=== PATIENT | female | born 1985 | race Two or more races ===

== ENCOUNTER 2024-01-31 15:40 | Outpatient (CLI) | payer OTHER, SELFPAY | END 2024-01-31 15:41 | disposition home or self-care (01) | PROVIDERS: PCP Internal Medicine; Visit Provider Internal Medicine | DX: M32.9 Systemic lupus erythematosus, unspecified (principal); Z13.29 Encounter for screening for other suspected endocrine disorder | CPT/HCPCS: 80053; 84443 ==

== ENCOUNTER 2024-03-27 15:51 | Outpatient (CLI) | payer OTHER, SELFPAY ==
--- NOTE | 2024-03-27 16:00 | CRLHL7_ITS ---
For Patients: As a result of the Century Cures Act, medical imaging exams and procedure reports are released immediately into your electronic medical record. You may view this report before your referring provider. If you have questions, please contact your health care provider. CLINICAL HISTORY: pelvic and perineal pain TECHNIQUE: 2D soliman scale ultrasound. In addition color Doppler and spectral Doppler analysis was performed of the pelvis using a transabdominal and transvaginal approach. FINDINGS: Left uterine intramural fibroid measures 11 x 10 x 11 mm. The uterus measures 9.2 x 4.0 x 4.8 cm. The endometrial lining measures 9 mm in thickness. The right ovary measures 2.7 x 1.8 x 1.3 cm in size and the left ovary measures 3.6 x 2.9 x 1.3 cm. The ovaries demonstrate normal arterial and venous blood flow on color Doppler and spectral Doppler analysis. There are no suspicious fluid collections within the cul-de-sac. IMPRESSION: No ovarian torsion, adnexal mass or excess pelvic fluid. Mildly heterogeneous area within the right ovary may represent an incidental dermoid or hemorrhagic cyst. This measures 2.2 cm. Dictated by Rosendo Nunn MD @ 03/28/2024 10:38:17 AM (Electronically Signed)
== END 2024-03-27 15:52 | disposition home or self-care (01) ==
LOC: US 15:55
PROVIDERS: PCP Internal Medicine; Visit Provider Obstetrics & Gynecology
DX: R10.2 Pelvic and perineal pain (principal)
CPT/HCPCS: 76830; 76856; 93976; T1013

== ENCOUNTER 2024-06-10 08:15 | Outpatient (CLI) | payer OTHER, SELFPAY | END 2024-06-10 08:16 | disposition home or self-care (01) | LOC: OP CLINIC 08:24 | PROVIDERS: PCP Internal Medicine; Visit Provider Internal Medicine | DX: Z53.8 Procedure and treatment not carried out for other reasons (principal) ==

== ENCOUNTER 2025-03-14 06:59 | Outpatient (CLI) | payer OTHER, SELFPAY ==
--- NOTE | 2025-03-14 07:15 | CRLHL7_ITS ---
For Patients: As a result of the Century Cures Act, medical imaging exams and procedure reports are released immediately into your electronic medical record. You may view this report before your referring provider. If you have questions, please contact your health care provider. CLINICAL HISTORY: PERINEAL AND PELVIC PAIN COMPARISON: None. TECHNIQUE: 2D soliman-scale ultrasound. In addition, color Doppler and spectral Doppler analysis was performed of the pelvis using a transabdominal and transvaginal approach. Transvaginal imaging performed to better visualize the endometrial stripe and ovaries. FINDINGS: The uterus measures 9.3 x 4.6 x 5.1 cm. Left lower uterine intramural fibroid measures 1.3 x 1.2 x 1.3 cm. The endometrial lining measures 13 millimeters. Complex fluid is present within the fundal endometrium. The right ovary measures 3.2 x 2.1 x 1.9 cm in size and the right ovary measures 5.7 x 2.0 x 3.0 cm. The ovaries demonstrate normal arterial and venous blood flow on color Doppler and spectral Doppler analysis. Simple left adnexal cyst measures 3.0 x 2.2 x 2.8 cm. IMPRESSION: Simple left adnexal cyst/fluid collection measures 3 cm. Ovaries are unremarkable. No torsion. Thickened endometrium measuring 13 millimeters with probable blood products in the fundal endometrium. Small endometrial polyps can not be excluded. Dictated by Rosendo Nunn MD @ 03/14/2025 11:15:32 AM (Electronically Signed)
== END 2025-03-14 07:00 | disposition home or self-care (01) ==
LOC: US 07:00
PROVIDERS: PCP Internal Medicine; Visit Provider Obstetrics & Gynecology
DX: R10.2 Pelvic and perineal pain (principal); D25.9 Leiomyoma of uterus, unspecified; R93.89 Abnormal findings on diagnostic imaging of other specified body structures
CPT/HCPCS: 76830; 76856; 93976; T1013

== ENCOUNTER 2025-04-17 15:56 | Outpatient (CLI) | payer OTHER, SELFPAY | END 2025-04-17 15:57 | disposition home or self-care (01) | PROVIDERS: PCP Internal Medicine; Visit Provider Internal Medicine | DX: M32.9 Systemic lupus erythematosus, unspecified (principal); Z01.818 Encounter for other preprocedural examination | CPT/HCPCS: 80053; 86038; 86039; 86200; 86431 ==

== ENCOUNTER 2025-04-23 08:56 | Day surgery (SDC) | payer OTHER, SELFPAY ==
[2025-04-23] VITALS (13 sets, daily range): BP systolic 104–117; BP diastolic 59–81; PULSE 75–104; RESP 10–20; TEMP 36.2–37.1; O2SAT 98–100; BMI 28.4
[2025-04-23] MEDS: SODIUM CHLORIDE 0.9 % (FLUSH) 10 ML SYRINGE IVF (09:18)
[2025-04-23] MEDS: LACTATED RINGERS 1000 ML 1,000 ML 100 ML IV ×2 (09:18→13:05)
[2025-04-23 09:23] LABS: Ur HCG Qualitative* Negative (Negative)
--- NOTE | 2025-04-23 10:46 | P.ANES_ITS ---
Anesthesia Charges Start Date/Time Anesthesia Start Date: 04/23/25 Anesthesia Start Time: 10:59 Stop Date/Time Anesthesia Stop Date: 04/23/25 Anesthesia Stop Time: 13:09 Coding CPT Codes CPT Codes: ANESTH SURG LOWER ABDOMEN - 77281 ([id number]) P2 - PATIENT W/MILD SYST DISEASE, QK - APPLE PICKING SUPERVISOR 2-4 CNCRNT ANES PROC, QX - ROAD REPAIRER SVC W/ MD MED DIRECTION
--- NOTE | 2025-04-23 10:46 | W.ANESCHARGE ---
Anesthesia Charges Start Date/Time Anesthesia Start Date: 04/23/25 Anesthesia Start Time: 10:59 Stop Date/Time Anesthesia Stop Date: 04/23/25 Anesthesia Stop Time: 13:09 Coding CPT Codes CPT Codes: ANESTH SURG LOWER ABDOMEN - 27888 ([id number]) P2 - PATIENT W/MILD SYST DISEASE, QK - WHOLESALE AGRONOMIST 2-4 CNCRNT ANES PROC, QX - RAILWAY ENGINEER SVC W/ MD MED DIRECTION
--- NOTE | 2025-04-23 11:06 | P.GYNPRC_ITS ---
Procedure Note Date of procedure: 04/23/25 [facility] bill your pro fee for this procedure?: Yes Pre-op diagnosis: 1. Pelvic pain, left lower quadrant 2. Abnormal uterine bleeding due to suspected endometrial polyp(s) 3. History sections x2 and laparoscopic cholecystectomy Post-op diagnosis: 1. Pelvic pain, left lower quadrant 2. Abnormal uterine bleeding due to suspected endometrial polyp(s) 3. History sections x2 and laparoscopic cholecystectomy 4. Intra-abdominal and pelvic adhesions Procedure: 1. Hysteroscopy 2. D&C 3. Polypectomy 4. Laparoscopy 5. Lysis of adhesions Anesthesia: GETA Complications: None. Surgeon: Leslie Dalal MD Binding Folder Machine: Caroline Watkins Estimated blood loss (mL): 10 IV fluids (mL): 1,000 Urine Output (mL): 100 Pathology: specimen obtained, sent to pathology (Endometrial polyp and endometrial curettings, sent together as a single specimen) Condition: stable Disposition: same day Findings: Hysteroscopy: One endometrial polyp noted arising from the posterior aspect of the endometrium near the internal cervical os. Thick endometrial lining, consistent with mid cycle. Normal tubal ostia bilaterally. Laparoscopy: Extensive adhesions between the omentum and anterior abdominal wall as well as between the omentum and uterine fundus. Extensive adhesions tethering the sigmoid colon to the left abdominal wall and left pelvic sidewall overlying the left round ligament and left ovary. Left ovary difficult to visualize even after the overlying sigmoid colon was freed from the obscuring adhesions, significantly adherent to the left pelvic sidewall. Right ovary significantly adherent to the right pelvic sidewall near the appendix. Normal- appearing appendix. Left distal fallopian tube nonvisualized. Right distal fallopian tube and fimbria visualized near the adherent right ovary. No evidence of endometriosis, hydrosalpinx, or ovarian cysts. Procedure Description: After obtaining informed consent, the patient was taken to the operating room where general anesthesia was obtained without difficulty. She was prepared and draped in the normal sterile fashion in the dorsal lithotomy position. An open-sided bivalve speculum was introduced into the vagina and the cervix visualized. The anterior lip of the cervix was grasped with a single-tooth tenaculum for traction. The uterus was gently sounded. Sound length was 7 cm. The cervix was gently dilated to a #6 Hegar dilator. A hysteroscope was then advanced under direct visualization through the cervix into the uterine cavity. Sterile normal saline was used as distending medium. The uterine cavity was carefully inspected with the findings noted above. The TruClear morcellator was used to remove the small endometrial polyp without difficulty. The morcellator was also used to remove some of the thick endometrial lining posteriorly. The hysteroscope was then removed. The uterine lining was sharply curetted in additional sample obtained. A Dumbstruck uterine manipulator was them placed and the tenaculum removed. A Medrano catheter was inserted into the bladder and left to gravity drainage. I then changed gown and gloves and my attention was turned to the abdomen. The superior aspect of the umbilical fold was injected with 0.25% Marcaine plain along the line of a previous laparoscopy scar. A 10 mm vertical incision was then made at this site using a scalpel. The subcutaneous tissues were bluntly dissected with a Kortney clamp to the fascia. The fascia was grasped with 2 small Juan clamps and elevated. The fascia was incised sharply with Maza scissors. A direct entry technique was used to place a 5 mm laparoscopic port with CO2 gas set to a 5 mmHg. The trocar was removed leaving the sleeve in place. The CO2 gas flow was turned to high flow to achieve pneumoperitoneum. The 5 mm laparoscope was used then to carefully inspect the abdomen and pelvis with findings noted above. Pictures were taken for documentation purposes. The patient was placed in Trendelenburg positioning. Two additional 5 mm ports were placed the first in the right lower quadrant in the second suprapubically in the midline two fingerbreadths above the symphysis pubis under direct visualization after first anesthetizing the skin and fascia with 0.25% Marcaine plain. The uterus was elevated using the uterine manipulator. Attention was first turned to the omental adhesions. The filmy adhesions between omentum and anterior abdominal wall were lysed with the laparoscopic Metzenbaum scissors and blunt dissection. The LigaSure device was used for adhesed to lysis where small vessels were observed. Great care was taken to stay close to the abdominal wall and away from underlying bowel. The omental adhesions were lysed along the uterine serosa using the LigaSure as well. I continued to use the Metzenbaum scissors to lyse adhesions that were tethering the sigmoid colon to the pelvic sidewall over the left ovary as well as adhesions which were tethering the sigmoid colon to the left round ligament. When the adhesions became more dense and close to the colon, I consulted Dr. Caroline Watkins of general surgery who scrubbed in and performed additional adhesiolysis to free the sigmoid colon from its adhesive attachments. Please see her note for further details. At this point, it was determined that the ovaries were so densely adherent to the pelvic sidewalls that no plane could be established safely to free them, and further adhesiolysis was discontinued. All tissues were carefully inspected and hemostasis observed. All instruments were then removed under direct visualization. Pneumoperitoneum was allowed to escape. The skin at all 3 port sites was closed in a subcuticular fashion with 4-0 Vicryl. Surgical glue was then placed over the incisions. The uterine manipulator and Medrano catheter were removed. The patient tolerated the procedure well. Sponge, lap, and needle counts were correct x2. The patient was taken to the recovery room awake and in stable condition. She received 2 g of IV Ancef preoperatively.
[2025-04-23] MEDS: CEFAZOLIN 1 GM inj 2 GM IVP (11:16)
[2025-04-23] MEDS: BUPIVACAINE 0.25% 30 ML INJECTION (11:29)
--- NOTE | 2025-04-23 13:10 | P.ANES_ITS ---
Anesthesia Charges Start Date/Time Anesthesia Start Date: 04/23/25 Anesthesia Start Time: 10:59 Stop Date/Time Anesthesia Stop Date: 04/23/25 Anesthesia Stop Time: 13:09 Coding CPT Codes CPT Codes: ANESTH SURG LOWER ABDOMEN - 75258 ([id number]) P2 - PATIENT W/MILD SYST DISEASE, QK - CRACK OFF PERSON 2-4 CNCRNT ANES PROC, QX - BIOLOGICAL SCIENCES PROFESSOR SVC W/ MD MED DIRECTION
--- NOTE | 2025-04-23 13:10 | W.ANESCHARGE ---
Anesthesia Charges Start Date/Time Anesthesia Start Date: 04/23/25 Anesthesia Start Time: 10:59 Stop Date/Time Anesthesia Stop Date: 04/23/25 Anesthesia Stop Time: 13:09 Coding CPT Codes CPT Codes: ANESTH SURG LOWER ABDOMEN - 35115 ([id number]) P2 - PATIENT W/MILD SYST DISEASE, QK - DICTAPHONE TYPIST 2-4 CNCRNT ANES PROC, QX - SENIOR RESEARCH PROJECT MANAGER SVC W/ MD MED DIRECTION
--- NOTE | 2025-04-23 13:20 | PM.GSPRC ---
Operative Note Date of procedure: 04/23/25 Pre-op diagnosis: 1. left lower quadrant pain 2. Intra-abdominal adhesions Post-op diagnosis: same Type of Procedure: Laparoscopic lysis of adhesions Indications: The patient is a 39-year-old female was undergoing diagnostic laparoscopy for pelvic pain in the left lower quadrant by Dr. Dalal. Intraoperatively she was found to have intra-abdominal adhesions. Dr. Dalal was able to take down omental adhesions, however the patient had sigmoid colon which was noted to be adherent to the fallopian tube and ovary on the left, precluding visualization of the structures. An intraoperative consultation was requested for assistance. Please see Dr. Dalal' documentation for preoperative decision making. Procedure Description: I arrived to the OR with the patient in lithotomy position, under general anesthesia. Dr. Dalal had placed laparoscopic ports in the lower abdomen and had lysed omental adhesions. I examined the abdomen. The patient had sigmoid colon which was adherent to the left anterolateral pelvic sidewall, specifically what appeared to be the left ovary and fallopian tube. This precluded visualization of the ovary. Using Metzenbaum scissors, I took down these adhesions. I took care to divide only the wispy portions of the adhesions which appeared to be between epiploic fat and the ovary. Once this was taken down, it was not entirely clear that the tissue behind this was the ovary as it was scarred into the peritoneum. There was some whitish tissue slightly more laterally, again covered by sigmoid colon. Again, I carefully took down the adhesions between the peritoneum, with care to err on the side of the peritoneum to avoid injury to the serosa of the colon. There was a plane with the fibers between the 2 tissues. Once this was taken down, again, it was unclear exactly where the ovary was located, as it appeared to be possibly scarred to the peritoneum, however the sigmoid colon was now completely mobilized from this area. It was again examined and free from injury. It should be noted that the adhesions that were taken down were not the peritoneal attachments between the colon and the pelvis or lateral abdomen - These were left intact. I then turned the case back over to Dr. Dalal. Findings: Left lower quadrant adhesions between the sigmoid colon and the anterio-lateral pelvic sidewall. Anesthesia: GETA Surgeon: Caroline Watkins MD Estimated blood loss (mL): 1 Condition: stable Disposition: no change
--- NOTE | 2025-04-23 13:21 | SUR.OPER ---
TruClear Deficit 170ml. Medrano removed at end of case with total output of 100
[2025-04-23] MEDS: fentaNYL 100 MCG/2 ML inj 50 MCG IVP (13:40)
[2025-04-23] MEDS: ACETAMINOPHEN 500 MG TABLET 1000 MG PO (14:00)
[2025-04-23] MEDS: hydrOXYzine pamoate 25 MG CAPSULE PO (14:00)
[2025-04-23] MEDS: ONDANSETRON 2 MG/ML inj 4 MG IVP (15:13)
== END 2025-04-23 15:36 | disposition home or self-care (01) ==
PROVIDERS: PCP Internal Medicine; Visit Provider Obstetrics & Gynecology
PROC: 0UT94ZZ Resection of Uterus, Percutaneous Endoscopic Approach (ICD-10-PCS; CPT 52000; principal; 2025-04-23 10:00)
DX: R10.2 Pelvic and perineal pain (principal); R10.32 Left lower quadrant pain; N93.8 Other specified abnormal uterine and vaginal bleeding; N73.6 Female pelvic peritoneal adhesions (postinfective); K66.0 Peritoneal adhesions (postprocedural) (postinfection); N84.0 Polyp of corpus uteri
CPT/HCPCS: 58558; 49329; 00840; 81025; T1013; A9270; C1782; J0665; J0690; J1100; J1885; J2250; J2371; J2405; J2704; J2710; J3010; J3490; J7120